=== PATIENT | male | born 1970 | race Caucasian/White ===

== ENCOUNTER → 2024-03-31 13:44 | Outpatient (BNVA) | payer OTHER, SELFPAY | PROVIDERS: PCP Nurse Practitioner; Visit Provider Orthopaedic Surgery | DX: M54.9 Dorsalgia, unspecified; M17.0 Bilateral primary osteoarthritis of knee; M47.816 Spondylosis without myelopathy or radiculopathy, lumbar region; M43.16 Spondylolisthesis, lumbar region | CPT/HCPCS: 72110; 73560; 73565 ==

== ENCOUNTER → 2024-07-02 13:52 | Outpatient (BNVA) | payer OTHER, SELFPAY | PROVIDERS: PCP Nurse Practitioner; Visit Provider Orthopaedic Surgery | DX: M48.062 Spinal stenosis, lumbar region with neurogenic claudication (principal) | CPT/HCPCS: 72110 ==

== ENCOUNTER 2024-10-07 13:37 | Outpatient (CLI) | payer OTHER, SELFPAY ==
--- NOTE | 2024-10-07 14:00 | MR_ITS ---
WS: [id number] MRI LUMBAR SPINE NONCONTRAST HISTORY: Chronic back pain for 2 years. Spinal stenosis. COMPARISON: None available. TECHNIQUE: Sagittal and axial multisequence imaging is submitted. Component of cervical stenosis is likely. Effacement of CSF throughout the cervical canal. Mild LEFT curvature lumbar spine. L3 retrolisthesis by 2 mm. Disc spaces are mildly narrowed and desiccated. No marrow edema or fracture. Conus terminates normally at L1-2 disc level. T11-12: Marked facet arthropathy and ligamentum flavum hypertrophy bilaterally doesn't appear to be encroaching upon the foramina. This is only seen on the sagittal sequence. L1-L2: Mild annular disc bulging with ligamentum flavum and facet arthritis. Mild central, bilateral subarticular recess and foraminal stenosis. L2-L3: Mild disc bulging with ligamentum flavum and facet arthritis. Disc encroachment upon the ventral thecal sac. Mild to moderate central, bilateral subarticular recess and foraminal stenosis. L3-L4: Marked ligamentum flavum and facet arthritis. Disc bulging and mild osteophytosis. Extruded disc extends caudad to the disc level encroaching upon the LEFT subarticular recess. Narrowing of the subarticular recesses and foramina. Moderate central, bilateral subarticular recess stenosis and moderate to severe foraminal stenosis. L4-L5: Diffuse annular disc bulging with severe ligamentum flavum and facet arthritis. Mild central with moderate subarticular recess and severe foraminal stenosis, LEFT greater than RIGHT. LEFT foraminal disc protrusion. L5-S1: Diffuse disc bulging with marked ligamentum flavum and facet arthritis. Moderate bilateral foraminal stenosis. Paravertebral soft tissues are negative. MR/MR lumbar spine wo con* [id number] IMPRESSION: 1. Diffuse narrowing of the lumbar canal which may be related to short pedicle s. 2. L3-4: Extruded disc extends caudad into the LEFT subarticular recess. Addit ional disc disease and facet arthropathy resulting in moderate central, bilater al subarticular recess and moderate to severe foraminal stenosis. 3. L4-5: Mild central with moderate subarticular recess and severe foraminal s tenosis, LEFT greater than RIGHT. Additional LEFT foraminal disc protrusion con tributing to the stenosis. 4. L5-S1: Moderate bilateral foraminal stenosis. 5. L2-3: Mild to moderate central with bilateral subarticular recess and tahir inal stenosis. 6. L1-2: Mild central, bilateral subarticular recess and foraminal stenosis. 7. T11-12: Marked facet arthritis and ligamentum flavum hypertrophy encroachin g upon the foramina. Seen only on the sagittal sequences.
== END 2024-10-07 13:38 | disposition home or self-care (01) ==
LOC: RAD 13:41
PROVIDERS: PCP Nurse Practitioner; Visit Provider Orthopaedic Surgery
DX: M48.062 Spinal stenosis, lumbar region with neurogenic claudication (principal); R93.7 Abnormal findings on diagnostic imaging of other parts of musculoskeletal system; M51.26 Other intervertebral disc displacement, lumbar region; M51.86 Other intervertebral disc disorders, lumbar region; M47.896 Other spondylosis, lumbar region; M48.07 Spinal stenosis, lumbosacral region; M47.894 Other spondylosis, thoracic region; M43.8X6 Other specified deforming dorsopathies, lumbar region; M43.16 Spondylolisthesis, lumbar region; M51.369 Other intervertebral disc degeneration, lumbar region without mention of lumbar back pain or lower extremity pain; M51.379 Other intervertebral disc degeneration, lumbosacral region without mention of lumbar back pain or lower extremity pain; M47.897 Other spondylosis, lumbosacral region
CPT/HCPCS: 72148